=== PATIENT | female | born 1995 | race Caucasian/White ===

== ENCOUNTER 2016-12-03 22:02 | Emergency (ER) | payer MEDICAID ==
[~2016-12-03] VITALS: Ht 154.9 cm; Wt 93.0 kg
[2016-12-03 22:10] VITALS: BP_SYST 134
[2016-12-03] MEDS ORDERED: NACL 0.9% 1,000 ML IV ONE (22:18)
[2016-12-03] MEDS ORDERED: methylPREDNISolone SOD SUCC/PF 62.5 MG/ML VIAL IVP ONE (22:30)
[2016-12-03] MEDS ORDERED: FAMOTIDINE PF 20 MG/2 ML VIAL IVP ONE (22:30)
[2016-12-03] MEDS ORDERED: EPINEPHrine 1 MG/ML AMP SUBCUT ONE (22:30)
[2016-12-04 01:20] VITALS: BP_SYST 129
== END 2016-12-04 01:20 | disposition home or self-care (01) ==
LOC: SED 22:02
DX: T78.1XXA Other adverse food reactions, not elsewhere classified, initial encounter (principal); L50.9 Urticaria, unspecified; Z88.8 Allergy status to other drugs, medicaments and biological substances; Z91.018 Allergy to other foods; X58.XXXA Exposure to other specified factors, initial encounter
CPT/HCPCS: 96361; 96372; 96374; 96375; 99285; J0171; J2930; J3490; J7030

== ENCOUNTER 2017-01-16 21:40 | Emergency (ER) | payer MEDICAID ==
[~2017-01-16] VITALS: Ht 154.9 cm; Wt 97.5 kg
[2017-01-16 21:49] VITALS: BP_SYST 124
[2017-01-16] MEDS: ALBUTEROL SULFATE 0.083% 2.5 MG/3 ML VIAL.NEB IH ONE (22:22)
[2017-01-16] MEDS: PREDNISONE 20 MG TABLET PO ONE (22:58)
[2017-01-16 23:15] VITALS: BP_SYST 126
== END 2017-01-16 23:15 | disposition home or self-care (01) ==
LOC: SED 21:40
DX: J20.9 Acute bronchitis, unspecified (principal); J45.909 Unspecified asthma, uncomplicated; Z88.8 Allergy status to other drugs, medicaments and biological substances; Z91.018 Allergy to other foods
CPT/HCPCS: 93005; 94640; 99283; J7512

== ENCOUNTER 2018-03-19 15:04 | Emergency (ER) | payer MEDICAID ==
[~2018-03-19] VITALS: Ht 160 cm; Wt 90.7 kg
[2018-03-19 15:12] VITALS: BP_SYST 130
[2018-03-19] MEDS ORDERED: ACETAMINOPHEN 325 MG TABLET PO ONE (17:15)
[2018-03-19 17:52] VITALS: BP_SYST 122
== END 2018-03-19 17:49 | disposition home or self-care (01) ==
LOC: SED 15:04
DX: S46.912A Strain of unspecified muscle, fascia and tendon at shoulder and upper arm level, left arm, initial encounter (principal); I88.9 Nonspecific lymphadenitis, unspecified; J45.909 Unspecified asthma, uncomplicated; Z88.8 Allergy status to other drugs, medicaments and biological substances; Z91.018 Allergy to other foods; X58.XXXA Exposure to other specified factors, initial encounter; Y93.89 Activity, other specified; Y92.89 Other specified places as the place of occurrence of the external cause; Y99.8 Other external cause status
CPT/HCPCS: 99282